=== PATIENT | female | born 1960 | race Two or more races ===

== ENCOUNTER 2023-08-14 05:10 | Day surgery (SDC) | payer OTHER ==
[~2023-08-14] VITALS: Ht 162.6 cm; Wt 93.4 kg
[~2023-08-14 05:10] MED LIST: ALTACE10 MG PO; CYMBALTA20 MG PO; FLOVENT HFA12 GM IH; HORIZANT600 MG PO; JANUMET XR 50-1 EACH PO; PLAQUENIL PO; PROTONIX40 MG PO; SYNTHROID50 MCG PO; ZETIA10 MG PO; [UNRECOGNIZED DRUG - OTHER]
== END 2023-08-14 11:20 | disposition home or self-care (01) ==
LOC: CIR.AMB 05:10
PROVIDERS: ATTEND Orthopaedic Surgery
DX: M75.121 Complete rotator cuff tear or rupture of right shoulder, not specified as traumatic (principal); M75.21 Bicipital tendinitis, right shoulder; M24.111 Other articular cartilage disorders, right shoulder; Z20.822 Contact with and (suspected) exposure to COVID-19; Z88.0 Allergy status to penicillin; Z91.041 Radiographic dye allergy status; Z88.6 Allergy status to analgesic agent